=== PATIENT | female | born 1985 | race Caucasian/White ===

== ENCOUNTER 2017-10-24 10:28 | Inpatient (IN) | payer OTHER ==
[~2017-10-24] VITALS: Ht 162.6 cm; Wt 75.8 kg
[2017-10-29] MEDS ORDERED: OXYTOCIN 30U/ 0.9% NaCL 500ML 500 ML IV ONE (20:38)
[2017-10-29] MEDS ORDERED: OXYTOCIN 30U/ 0.9% NaCL 500ML 500 ML IV PRN (20:38)
[2017-10-29] MEDS ORDERED: D5%-LACTATED RINGERS 1,000 ML IV SCH (20:38)
[2017-10-29] MEDS ORDERED: LACTATED RINGERS 1,000 ML IV SCH (20:38)
[2017-10-29 20:45] VITALS: BP 105/71
[2017-10-29] MEDS ORDERED: MISOPROSTOL 25 MCG TABLET VG PRN (21:00)
[2017-10-29] MEDS ORDERED: FENTANYL PF 100 MCG/2ML IVPush PRN (21:00)
[2017-10-29] MEDS ORDERED: ALUMINUM/MAG/SIMETHICONE 30 ML UDC PO PRN (21:00)
[2017-10-29] MEDS ORDERED: ONDANSETRON 2MG/ML, 2ML IVPush PRN (21:00)
[2017-10-29] MEDS ORDERED: SODIUM CITRATE/CITRIC ACID 30 ML UDC PO PRN (21:00)
[2017-10-29] MEDS ORDERED: FENTANYL PF 100 MCG/2ML IV PRN (21:00)
[2017-10-29] MEDS ORDERED: METOCLOPRAMIDE 5 MG/ML, 2ML IVPush PRN (21:00)
[2017-10-29] MEDS ORDERED: MISOPROSTOL 25 MCG TABLET ONE (21:07)
[2017-10-29] MEDS ORDERED: LIDOCAINE 1%, 20ML ONE (21:08)
[2017-10-29] MEDS ORDERED: MISOPROSTOL 200 MCG TABLET ONE (21:08)
[2017-10-29] MEDS ORDERED: OXYTOCIN 30U/ 0.9% NaCL 500ML 500 ML ONE (21:09)
[2017-10-29] MEDS ORDERED: PLEASE ENTER ALLERGIES MC SCH ×2 (21:25)
[2017-10-29 21:34] LABS: HEMATOCRIT 32.5 % (34.6-47.8); HEMOGLOBIN 11.1 g/dL (11.7-16.4); WHITE BLOOD COUNT 9.3 x10^3/uL (3.4-10)
[2017-10-29] MEDS ORDERED: TERBUTALINE 1 MG/ML, 1ML ONE (22:40)
[2017-10-30] MEDS ORDERED: METOCLOPRAMIDE 5 MG/ML, 2ML ONE (03:20)
[2017-10-30] MEDS ORDERED: SODIUM CITRATE/CITRIC ACID 30 ML UDC ONE (03:20)
[2017-10-30] MEDS: TERBUTALINE 1 MG/ML, 1ML IVPush PRN ×2 (04:03→09:57)
[2017-10-30] MEDS ORDERED: FENTANYL/BUPIV./NS/PF 250 ML EPIDCONT SCH (08:23)
[2017-10-30] MEDS ORDERED: LACTATED RINGERS 1,000 ML IV SCH (08:23)
[2017-10-30] MEDS ORDERED: LACTATED RINGERS 1,000 ML IVBOLUS PRN ×2 (08:30→09:30)
[2017-10-30] MEDS ORDERED: FENTANYL/BUPIV./NS/PF 250 ML EPIDCONT ONE (08:39)
[2017-10-30] MEDS ORDERED: BUPIVACAINE 0.25% ONE ×2 (08:39→09:23)
[2017-10-30] MEDS: FENTANYL/BUPIV./NS/PF 250 ML EPIDCONT SCH (09:07)
[2017-10-30] MEDS: LACTATED RINGERS 1,000 ML IV SCH ×4 (09:07→18:07)
[2017-10-30] MEDS ORDERED: TERBUTALINE 1 MG/ML, 1ML ONE (09:55)
[2017-10-30] MEDS ORDERED: LIDOCAINE-MPF 2% ,5ML ONE ×2 (12:53)
[2017-10-30] MEDS ORDERED: LACTATED RINGERS 1,000 ML INTUTE PRN (13:30)
[2017-10-30] MEDS ORDERED: HYDROmorphone 2 MG/ML, 1ML ONE (17:42)
[2017-10-30] MEDS ORDERED: ONDANSETRON 2MG/ML, 2ML ONE (17:42)
[2017-10-30] MEDS ORDERED: OXYTOCIN 10 UNITS/ML, 1ML ONE (17:42)
[2017-10-30] MEDS ORDERED: CEFAZOLIN 1,000 MG ONE (17:42)
[2017-10-30] MEDS ORDERED: FENTANYL PF 100 MCG/2ML ONE (17:42)
[2017-10-30] MEDS ORDERED: SODIUM CHLORIDE 0.9% PF 10ML ONE (17:43)
[2017-10-30] MEDS ORDERED: PROPOFOL 10 MG/ML, 20ML ONE (17:44)
[2017-10-30] MEDS ORDERED: METHYLERGONOVINE 0.2 MG/ML IM PRN (18:30)
[2017-10-30] MEDS ORDERED: OXYcodone/APAP 5/325MG TABLET PO PRN (18:30)
[2017-10-30] MEDS ORDERED: morphine SULFATE 10 MG/ML, 1ML IVPush PRN ×2 (18:30)
[2017-10-30] MEDS ORDERED: DIPH,PERTUSS(ACELL),TET VAC/PF NC IM-VACC PRN (18:30)
[2017-10-30] MEDS ORDERED: MISOPROSTOL 200 MCG TABLET PR PRN (18:30)
[2017-10-30] MEDS ORDERED: CARBOPROST TROMETHAMINE 250 MCG/ML, 1ML IM PRN (18:30)
[2017-10-30] MEDS ORDERED: ONDANSETRON 2MG/ML, 2ML IV PRN (18:30)
[2017-10-30] MEDS ORDERED: ACETAMINOPHEN 325 MG TABLET PO PRN (18:30)
[2017-10-30] MEDS: OXYTOCIN 30U/ 0.9% NaCL 500ML 500 ML IV SCH (18:57)
[2017-10-30] MEDS ORDERED: KETOROLAC 30 MG/1 ML ONE (19:25)
[2017-10-30] MEDS: KETOROLAC 30 MG/1 ML IV SCH (19:26)
[2017-10-30 21:00] VITALS: BP 111/74
[2017-10-31 01:00] VITALS: BP 115/75
[2017-10-31] MEDS: LACTATED RINGERS 1,000 ML IV SCH ×6 (01:07→18:07)
[2017-10-31] MEDS: KETOROLAC 30 MG/1 ML IV SCH ×4 (01:36→19:30)
[2017-10-31] MEDS: OXYTOCIN 30U/ 0.9% NaCL 500ML 500 ML IV SCH ×2 (04:07→14:07)
[2017-10-31 04:32] LABS: WHITE BLOOD COUNT 14.3 x10^3/uL (3.4-10)
[2017-10-31 05:00] VITALS: BP 121/74
[2017-10-31] MEDS: OXYcodone/APAP 5/325MG TABLET PO PRN ×3 (05:14→21:31)
[2017-10-31] MEDS: FENTANYL/BUPIV./NS/PF 250 ML EPIDCONT SCH (05:57)
[2017-10-31] MEDS ORDERED: PRENATAL VIT/IRON/FA 1 EACH TABLET ONE (07:21)
[2017-10-31] MEDS: DOCUSATE 100 MG CAPSULE PO PRN ×2 (07:27→19:31)
[2017-10-31] MEDS: PRENATAL VIT/IRON/FA 1 EACH TABLET PO SCH (07:27)
[2017-10-31 08:00] VITALS: BP 109/71
[2017-10-31 12:00] VITALS: BP 103/66
[2017-10-31 16:00] VITALS: BP 108/69
[2017-10-31 21:00] VITALS: BP 116/68
[2017-10-31] MEDS ORDERED: SIMETHICONE 80 MG CHEW TAB ONE (21:41)
[2017-11-01] MEDS: IBUPROFEN 600 MG TABLET PO PRN ×2 (04:14→10:11)
[2017-11-01] MEDS: OXYcodone/APAP 5/325MG TABLET PO PRN ×2 (05:44→10:11)
[2017-11-01 07:15] VITALS: BP 108/74
[2017-11-01] MEDS: PRENATAL VIT/IRON/FA 1 EACH TABLET PO SCH (09:00)
[2017-11-01] MEDS ORDERED: OXYC-302 PO ×2 (09:48→09:50)
[2017-11-01] MEDS ORDERED: IBUP-1222 PO (09:49)
== END 2017-11-01 10:46 | disposition home or self-care (01) | DRG 766 ==
LOC: LDIP 10-29 20:21 → 2NW 10-30 20:49
PROVIDERS: ADMIT Obstetrics & Gynecology Maternal & Fetal Medicine; ATTEND Obstetrics & Gynecology Maternal & Fetal Medicine
PROC: 10D00Z1 Extraction of Products of Conception, Low, Open Approach (ICD-10-PCS; principal; 2017-10-30)
DX: O48.0 Post-term pregnancy (principal); O64.0XX0 Obstructed labor due to incomplete rotation of fetal head, not applicable or unspecified; O36.8330 Maternal care for abnormalities of the fetal heart rate or rhythm, third trimester, not applicable or unspecified; O69.81X0 Labor and delivery complicated by cord around neck, without compression, not applicable or unspecified; O76 Abnormality in fetal heart rate and rhythm complicating labor and delivery; Z3A.41 41 weeks gestation of pregnancy; Z37.0 Single live birth
CPT/HCPCS: 36415; 82803; 85025; 86850; 86900; J0690; J1170; J1885; J2405; J2704; J3010; J2590; J3105; J7120

== ENCOUNTER 2019-12-16 09:11 | Outpatient (CLI) | payer OTHER ==
[~2019-12-16 09:11] MED LIST: IBUP-1222 PO; OXYC-302 PO
[2019-12-16 13:44] LABS: BASOPHILS # (AUTO) 0.02 x10^3/uL (0-0.1); BASOPHILS % (AUTO) 0 % (0-1); EOSINOPHILS # (AUTO) 0.08 x10^3/uL (0-0.4); EOSINOPHILS % (AUTO) 1 % (1-7); LYMPHOCYTES % (AUTO) 22 % (22-44); MD NO; MEAN CORPUSCULAR HEMOGLOBIN 32.5 pg (27.0-34.8); MEAN CORPUSCULAR VOLUME 95.8 fL (80-100); MEAN PLATELET VOLUME 9.1 fL (7.4-10.4); MONOCYTES % (AUTO) 6 % (2-9); NEUTROPHILS # (AUTO) 5.57 x10^3/uL (1.8-6.8); NEUTROPHILS % (AUTO) 71 % (42-75); PLATELET COUNT 222 x10^3/uL (130-400); RED CELL DISTRIBUTION WIDTH 12.9 % (9.6-15.2)
== END 2019-12-16 23:59 | disposition home or self-care (01) ==
LOC: CFH 09:11
PROVIDERS: ATTEND Obstetrics & Gynecology
DX: Z34.82 Encounter for supervision of other normal pregnancy, second trimester (principal); Z3A.00 Weeks of gestation of pregnancy not specified
CPT/HCPCS: 36415; 82728; 82950; 85025; 86592; 86850; 86900

== ENCOUNTER 2020-03-07 05:32 | Inpatient (IN) | payer OTHER ==
[~2020-03-07] VITALS: Ht 162.6 cm; Wt 77.2 kg
[2020-03-07] MEDS ORDERED: LACTATED RINGERS 1,000 ML IV SCH (05:33)
[2020-03-07 05:45] VITALS: BP 116/75
[2020-03-07] MEDS ORDERED: METOCLOPRAMIDE 5 MG/ML, 2ML ONE (05:52)
[2020-03-07] MEDS ORDERED: NEWBORN KIT ONE (05:52)
[2020-03-07] MEDS ORDERED: OXYTOCIN 30U/ 0.9% NaCL 500ML 500 ML ONE (05:52)
[2020-03-07] MEDS ORDERED: PREN-3 PO (05:52)
[2020-03-07] MEDS ORDERED: SODIUM CITRATE/CITRIC ACID 30 ML UDC ONE (05:52)
[2020-03-07] MEDS ORDERED: MAGN1TAB PO (05:53)
[2020-03-07] MEDS ORDERED: IRON1TAB60 PO (05:53)
[2020-03-07 05:57] LABS: BASOPHILS # (AUTO) 0.02 x10^3/uL (0-0.1); BASOPHILS % (AUTO) 0 % (0-1); EOSINOPHILS # (AUTO) 0.11 x10^3/uL (0-0.4); EOSINOPHILS % (AUTO) 1 % (1-7); LYMPHOCYTES # (AUTO) 2.62 x10^3/uL (1-3.4); LYMPHOCYTES % (AUTO) 27 % (22-44); MD NO; MEAN CORPUSCULAR HEMOGLOBIN 32.4 pg (27.0-34.8); MEAN CORPUSCULAR HGB CONC 34.4 g/dL (32.4-35.8); MEAN CORPUSCULAR VOLUME 94.3 fL (80-100); MEAN PLATELET VOLUME 8.8 fL (7.4-10.4); MONOCYTES # (AUTO) 0.69 x10^3/uL (0.2-0.8); MONOCYTES % (AUTO) 7 % (2-9); NEUTROPHILS # (AUTO) 6.45 x10^3/uL (1.8-6.8); NEUTROPHILS % (AUTO) 65 % (42-75); PLATELET COUNT 242 x10^3/uL (130-400); RED BLOOD COUNT 3.76 x10^6/uL (3.82-5.3); RED CELL DISTRIBUTION WIDTH 13.5 % (9.6-15.2)
[2020-03-07] MEDS ORDERED: METOCLOPRAMIDE 5 MG/ML, 2ML IV ONE (06:00)
[2020-03-07] MEDS ORDERED: SODIUM CITRATE/CITRIC ACID 30 ML UDC PO ONE (06:00)
[2020-03-07] MEDS ORDERED: LACTATED RINGERS 1,000 ML IVBOLUS ONE (06:00)
[2020-03-07] MEDS ORDERED: ONDANSETRON 2MG/ML, 2ML ONE (07:20)
[2020-03-07] MEDS ORDERED: OXYTOCIN 10 UNITS/ML, 1ML ONE (07:20)
[2020-03-07] MEDS ORDERED: CEFAZOLIN 1,000 MG ONE (07:20)
[2020-03-07] MEDS: OXYTOCIN 30U/ 0.9% NaCL 500ML 500 ML IV SCH ×2 (07:21→17:21)
[2020-03-07] MEDS ORDERED: FENTANYL PF 100 MCG/2ML ONE (07:21)
[2020-03-07] MEDS ORDERED: HYDROmorphone 2 MG/ML, 1ML ONE (07:21)
[2020-03-07] MEDS: LACTATED RINGERS 1,000 ML IV SCH ×5 (07:21→23:21)
[2020-03-07] MEDS ORDERED: SODIUM CHLORIDE 0.9% PF 10ML ONE ×2 (07:22)
[2020-03-07] MEDS ORDERED: OXYcodone/APAP 5/325MG TABLET PO PRN (07:30)
[2020-03-07] MEDS ORDERED: MEASLES,MUMPS&RUBELLA VACC/PF 0.5 ML SQ-VACC PRN (07:30)
[2020-03-07] MEDS ORDERED: DIPH,PERTUSS(ACELL),TET VAC/PF NC IM-VACC ONE (07:30)
[2020-03-07] MEDS ORDERED: ACETAMINOPHEN 325 MG TABLET PO PRN ×2 (07:30)
[2020-03-07] MEDS ORDERED: MISOPROSTOL 200 MCG TABLET PR PRN (07:30)
[2020-03-07] MEDS ORDERED: ONDANSETRON 2MG/ML, 2ML IV PRN (07:30)
[2020-03-07] MEDS ORDERED: CALCIUM CARBONATE 500 MG TAB.CHEW PO PRN (07:30)
[2020-03-07] MEDS ORDERED: IBUPROFEN 600 MG TABLET PO PRN (07:30)
[2020-03-07] MEDS ORDERED: MORPHINE SULFATE 4 MG/ML, 1ML IVPush PRN (07:30)
[2020-03-07] MEDS ORDERED: SIMETHICONE 80 MG CHEW TAB PO PRN (07:30)
[2020-03-07] MEDS ORDERED: EPHEDRINE 50 MG/ML, 1ML ONE (08:07)
[2020-03-07] MEDS ORDERED: OXYcodone 5 MG/5 ML ORAL.SOL UDC ONE (10:07)
[2020-03-07] MEDS: PHARMACY INSTRUCTION MC SCH ×3 (10:30→22:30)
[2020-03-07] MEDS ORDERED: HYDROcodone/APAP 7.5-325MG/15ML UDC PO ONE (10:30)
[2020-03-07 11:12] VITALS: BP 103/68
[2020-03-07] MEDS: KETOROLAC 30 MG/1 ML IV SCH ×3 (11:46→23:27)
[2020-03-07] MEDS ORDERED: OXYcodone 5 MG/5 ML ORAL.SOL UDC PO PRN (13:30)
[2020-03-07] MEDS: OXYcodone/APAP 5/325MG TABLET PO PRN ×2 (14:25→20:40)
[2020-03-07 17:20] VITALS: BP 107/73
[2020-03-07 19:30] VITALS: BP 110/74
[2020-03-07] MEDS: DOCUSATE 100 MG CAPSULE PO PRN (20:39)
[2020-03-07] MEDS: PRENATAL VIT/IRON/FA 1 EACH TABLET PO SCH (20:39)
[2020-03-07 23:36] VITALS: BP 103/69
[2020-03-08 01:45] LABS: BASOPHILS # (AUTO) 0.03 x10^3/uL (0-0.1); BASOPHILS % (AUTO) 0 % (0-1); EOSINOPHILS # (AUTO) 0.16 x10^3/uL (0-0.4); EOSINOPHILS % (AUTO) 1 % (1-7); LYMPHOCYTES # (AUTO) 2.03 x10^3/uL (1-3.4); LYMPHOCYTES % (AUTO) 16 % (22-44); MD NO; MEAN CORPUSCULAR HEMOGLOBIN 31.8 pg (27.0-34.8); MEAN CORPUSCULAR HGB CONC 33.2 g/dL (32.4-35.8); MEAN CORPUSCULAR VOLUME 95.8 fL (80-100); MEAN PLATELET VOLUME 8.6 fL (7.4-10.4); MONOCYTES # (AUTO) 0.63 x10^3/uL (0.2-0.8); MONOCYTES % (AUTO) 5 % (2-9); NEUTROPHILS # (AUTO) 9.88 x10^3/uL (1.8-6.8); NEUTROPHILS % (AUTO) 78 % (42-75); PLATELET COUNT 210 x10^3/uL (130-400); RED BLOOD COUNT 3.49 x10^6/uL (3.82-5.3)
[2020-03-08] MEDS: OXYcodone/APAP 5/325MG TABLET PO PRN ×4 (02:28→20:35)
[2020-03-08] MEDS: LACTATED RINGERS 1,000 ML IV SCH (03:21)
[2020-03-08] MEDS: OXYTOCIN 30U/ 0.9% NaCL 500ML 500 ML IV SCH (03:21)
[2020-03-08 04:09] VITALS: BP 100/67
[2020-03-08] MEDS: PHARMACY INSTRUCTION MC SCH ×4 (04:30→22:30)
[2020-03-08] MEDS: KETOROLAC 30 MG/1 ML IV SCH ×4 (05:36→23:36)
[2020-03-08 08:15] VITALS: BP 119/81
[2020-03-08] MEDS: PRENATAL VIT/IRON/FA 1 EACH TABLET PO SCH (10:15)
[2020-03-08] MEDS: DOCUSATE 100 MG CAPSULE PO PRN ×2 (10:15→20:35)
[2020-03-08 19:25] VITALS: BP 122/83
[2020-03-09] MEDS: OXYcodone/APAP 5/325MG TABLET PO PRN ×2 (00:38→07:07)
[2020-03-09] MEDS: PHARMACY INSTRUCTION MC SCH (04:30)
[2020-03-09] MEDS: KETOROLAC 30 MG/1 ML IV SCH (05:14)
[2020-03-09] MEDS: DOCUSATE 100 MG CAPSULE PO PRN (07:07)
[2020-03-09] MEDS: PRENATAL VIT/IRON/FA 1 EACH TABLET PO SCH (07:07)
[2020-03-09 07:10] VITALS: BP 107/75
[2020-03-09] MEDS ORDERED: IBUPROFEN 600 MG TABLET PO PRN (08:00)
[2020-03-09] MEDS ORDERED: IBUP-1222 PO (08:05)
[2020-03-09] MEDS ORDERED: OXYC-302 PO (08:06)
== END 2020-03-09 09:20 | disposition home or self-care (01) | DRG 788 ==
LOC: LDIP 05:32 → 2NW 10:35
PROVIDERS: ADMIT Obstetrics & Gynecology; ATTEND Obstetrics & Gynecology
PROC: 10D00Z1 Extraction of Products of Conception, Low, Open Approach (ICD-10-PCS; principal; 2020-03-07)
DX: O34.211 Maternal care for low transverse scar from previous cesarean delivery (principal); Z37.0 Single live birth; O69.81X0 Labor and delivery complicated by cord around neck, without compression, not applicable or unspecified; Z3A.39 39 weeks gestation of pregnancy; O99.02 Anemia complicating childbirth; D64.9 Anemia, unspecified
CPT/HCPCS: 36415; 82803; 85025; 86592; 86850; 86900; G0378; J0690; J1170; J1885; J2405; J3010; J2590; J2765; J7120

== ENCOUNTER 2021-07-13 22:58 | Emergency (ER) | payer OTHER ==
[~2021-07-13] VITALS: Ht 162.6 cm; Wt 62.4 kg
[~2021-07-13 22:58] MED LIST changes: +IRON1TAB60 PO; +MAGN1TAB PO; -OXYC-302 PO; +OXYC1TAB12 PO; +PREN-3 PO
[2021-07-13 23:44] LABS: BASOPHILS % (AUTO) 0 % (0-1); EOSINOPHILS % (AUTO) 1 % (1-7); LYMPHOCYTES % (AUTO) 11 % (22-44); MEAN CORPUSCULAR HEMOGLOBIN 33.5 pg (27.0-34.8); MEAN CORPUSCULAR HGB CONC 34.5 g/dL (32.4-35.8); MEAN PLATELET VOLUME 8.3 fL (7.4-10.4); MONOCYTES % (AUTO) 3 % (2-9); NEUTROPHILS % (AUTO) 85 % (42-75); PLATELET COUNT 270 x10^3/uL (130-400); RED BLOOD COUNT 3.88 x10^6/uL (3.82-5.3); RED CELL DISTRIBUTION WIDTH 12.7 % (9.6-15.2)
--- NOTE | 2021-07-13 23:44 | NUR ---
PT TO US
[2021-07-13 23:57] LABS: ALANINE AMINOTRANSFERASE 22 U/L (12-78); ALBUMIN 3.7 g/dL (3.4-5.0); ANION GAP 4 mmol/L (5-15); CALCIUM 8.6 mg/dL (8.5-10.1); CHLORIDE 107 mmol/L (98-107); CREATININE 0.71 mg/dL (0.55-1.02)
[2021-07-14 00:01] LABS: ALKALINE PHOSPHATASE 37 U/L (45-117); BILIRUBIN,TOTAL 0.6 mg/dL (0.2-1.0); TOTAL PROTEIN 7.5 g/dL (6.4-8.2)
[2021-07-14] MEDS ORDERED: ONDANSETRON ODT 4 MG ONE (01:19)
--- NOTE | 2021-07-14 01:25 | NUR ---
pt with c/o nasfranciscoa, requesting zofran. md gave verbal orders for 4 mg odt zofran. orders repeated.
[2021-07-14 01:33] VITALS: BP 120/81
[2021-07-14] MEDS ORDERED: ONDANSETRON ODT 4 MG PO ONE (02:00)
== END 2021-07-14 01:38 | disposition home or self-care (01) ==
LOC: ED 23:59
DX: K29.00 Acute gastritis without bleeding (principal); R10.13 Epigastric pain; R11.0 Nausea
CPT/HCPCS: 36415; 76700; 80053; 83690; 84703; 85025; 99284; Q0162